=== PATIENT | female | born 1975 | race Caucasian/White ===

== ENCOUNTER 2023-09-01 09:17 | Emergency (ER) | payer BC, MEDICAID ==
[~2023-09-01] VITALS: Ht 162.6 cm; Wt 94.1 kg
[2023-09-01] MEDS ORDERED: NIRM1TAB9 PO (09:32)
[2023-09-01 09:41] VITALS: BP 109/59; PULSE 95; RESP 16; TEMP 100.7; O2SAT 99
== END 2023-09-01 09:43 | disposition home or self-care (01) ==
LOC: ER 09:17
DX: U07.1 COVID-19 (principal); F32.A Depression, unspecified
CPT/HCPCS: 99283